=== PATIENT | female | born 1965 | race Native Hawaiian/Other Pacific Islander ===

== ENCOUNTER 2016-09-14 09:45 | Outpatient (CLI) | payer BC | END 2016-09-14 11:00 | disposition home or self-care (01) | LOC: MAMMO 09:45 | DX: Z12.31 Encounter for screening mammogram for malignant neoplasm of breast (principal) | CPT/HCPCS: G0202-TC ==

== ENCOUNTER 2016-10-05 14:18 | Outpatient (CLI) | payer OTHER | END 2016-10-05 19:30 | disposition home or self-care (01) | LOC: MAMMO 14:18 | DX: R92.2 Inconclusive mammogram (principal) | CPT/HCPCS: G0206-TC ==

== ENCOUNTER 2018-01-17 16:48 | Emergency (ER) | payer BC ==
[~2018-01-17] VITALS: Ht 167.6 cm; Wt 90.7 kg
[2018-01-17] MEDS ORDERED: ESTR1TAB13 PO (17:11)
[2018-01-17 19:14] VITALS: BP 138/78; TEMP 98.1
== END 2018-01-17 19:15 | disposition home or self-care (01) ==
LOC: ED 16:48
DX: S29.012A Strain of muscle and tendon of back wall of thorax, initial encounter (principal); S39.012A Strain of muscle, fascia and tendon of lower back, initial encounter
CPT/HCPCS: 36415; 85379; 85651; 96372; 99283; J1885